=== PATIENT | female | born 1980 | race Caucasian/White ===

== ENCOUNTER 2016-10-14 08:52 | Emergency (ER) | payer OTHER ==
[~2016-10-14] VITALS: Ht 157.5 cm; Wt 52.8 kg
[2016-10-14 10:03] LABS: BASOPHIL COUNT 0.1 K/uL (0-0.1); EOSINOPHIL (%) 3.1 % (0-5); EOSINOPHIL COUNT 0.2 K/uL (0-0.3); HEMATOCRIT 42.3 % (36.0-46.0); IMMATURE GRANULOCYTE (%) 0.5 % (0.0-0.7); INSTRUMENT ABS NEUTROPHIL CT 3.9 K/uL; LYMPHOCYTE COUNT 1.9 K/uL (1.0-2.8); MCH 30.3 PG (29.0-34.0); MCHC 32.9 G/DL (30.0-36.0); MCV 92.2 FL (83-99); MEAN PLAT.VOLUME 11.3 uM^3 (9.5-12.4); MONOCYTE (%) 6.8 % (3-12); MONOCYTE COUNT 0.4 K/uL (0-0.8); NEUTROPHIL (%) 59.4 % (45-76); NEUTROPHIL COUNT 3.9 K/uL (1.8-6.4); PLATELET COUNT 152 K/uL (156-360); RBC DIS.WIDTH-CV 12.8 % (11.8-14.6); RBC DIS.WIDTH-SD 43.2 % (39-53); RED BLOOD COUNT 4.59 M/uL (3.80-5.20); WHITE BLOOD COUNT 6.5 K/uL (4.1-10.2)
[2016-10-14 10:24] LABS: TROP-I INTERPRETATION NEGATIVE; TROPONIN-I < 0.01 ng/mL (0.0-0.30)
[2016-10-14 10:28] LABS: CHLORIDE 107 mEq/L (99-109); POTASSIUM 3.9 mEq/L (3.7-5.4); SODIUM 143 mEq/L (136-147)
[2016-10-14 10:29] LABS: GLUCOSE 77 mg/dL (70-99)
[2016-10-14 10:31] LABS: ANION GAP 9 MEQ/L (2-14)
[2016-10-14 10:33] LABS: GFR ESTIMATE (CALCULATED) > 59 mL/min/
[2016-10-14 10:34] LABS: UREA NITROGEN (BUN) 6 mg/dL (9-23)
[2016-10-14] MEDS ORDERED: TYLENOL WITH C1 EACH PO (12:49)
[2016-10-14 12:53] VITALS: BP 110/69
== END 2016-10-14 13:10 | disposition home or self-care (01) ==
LOC: EME 08:52
PROVIDERS: Emergency Medicine
DX: R07.89 Other chest pain (principal); M79.1 Myalgia; M54.5 Low back pain; F17.200 Nicotine dependence, unspecified, uncomplicated
CPT/HCPCS: 71020; 72040; 72100; 80048; 84484; 85025; 93005; 99281; 99284

== ENCOUNTER 2016-10-16 15:54 | Emergency (ER) | payer SELFPAY ==
[~2016-10-16] VITALS: Ht 154.9 cm; Wt 52.9 kg
[~2016-10-16 15:54] MED LIST: TYLENOL WITH C1 EACH PO
[2016-10-16] MEDS ORDERED: ATARAX,VISTARIL25 MG PO (16:30)
[2016-10-16 16:59] LABS: BASOPHIL COUNT 0.1 K/uL (0-0.1); EOSINOPHIL (%) 2.2 % (0-5); EOSINOPHIL COUNT 0.2 K/uL (0-0.3); HEMATOCRIT 43.6 % (36.0-46.0); IMMATURE GRANULOCYTE (%) 0.2 % (0.0-0.7); INSTRUMENT ABS NEUTROPHIL CT 4.7 K/uL; LYMPHOCYTE COUNT 2.7 K/uL (1.0-2.8); MCH 31.1 PG (29.0-34.0); MCHC 33.7 G/DL (30.0-36.0); MCV 92.2 FL (83-99); MEAN PLAT.VOLUME 11.2 uM^3 (9.5-12.4); MONOCYTE (%) 5.3 % (3-12); MONOCYTE COUNT 0.4 K/uL (0-0.8); NEUTROPHIL (%) 58.5 % (45-76); NEUTROPHIL COUNT 4.7 K/uL (1.8-6.4); PLATELET COUNT 162 K/uL (156-360); RBC DIS.WIDTH-CV 12.7 % (11.8-14.6); RBC DIS.WIDTH-SD 43.2 % (39-53); RED BLOOD COUNT 4.73 M/uL (3.80-5.20); WHITE BLOOD COUNT 8.1 K/uL (4.1-10.2)
[2016-10-16 17:09] VITALS: BP 115/95
[2016-10-16 17:10] LABS: CHLORIDE 107 mEq/L (99-109); POTASSIUM 3.8 mEq/L (3.7-5.4); SODIUM 142 mEq/L (136-147)
[2016-10-16 17:12] LABS: GLUCOSE 85 mg/dL (70-99)
[2016-10-16 17:13] LABS: ANION GAP 8 MEQ/L (2-14)
[2016-10-16 17:14] LABS: TOTAL BILIRUBIN 0.7 mg/dL (0.0-1.0)
[2016-10-16 17:16] LABS: ALKALINE PHOSPHATASE 160 IU/L (3-129); GFR ESTIMATE (CALCULATED) > 59 mL/min/
[2016-10-16 17:17] LABS: UREA NITROGEN (BUN) 5 mg/dL (9-23)
[2016-10-16 17:18] LABS: DIRECT BILIRUBIN 0.3 mg/dL (0.0-0.3)
[2016-10-17 14:48] LABS: HPCA INDEX 0.11
[2016-10-17 14:49] LABS: AHBS INDEX 19.51
[2016-10-17 14:50] LABS: HIV INDEX 0.12; HIV-1/2 AB/AG COMBO Nonreactive
[2016-10-17 14:51] LABS: HEPATITIS B SURFACE ANTIBODY REACTIVE
== END 2016-10-16 17:11 | disposition home or self-care (01) ==
LOC: EME 15:54
PROVIDERS: Nurse Practitioner Family
PROC: 3E0234Z Introduction of Serum, Toxoid and Vaccine into Muscle, Percutaneous Approach (ICD-10-PCS; principal; 2016-10-16)
DX: S90.921A Unspecified superficial injury of right foot, initial encounter (principal); W46.0XXA Contact with hypodermic needle, initial encounter; Z20.5 Contact with and (suspected) exposure to viral hepatitis; Z23 Encounter for immunization; J45.909 Unspecified asthma, uncomplicated; F17.200 Nicotine dependence, unspecified, uncomplicated
CPT/HCPCS: 80048; 80076; 85025; 86703; 86706; 86803; 99281; 99284